=== PATIENT | female | born 1975 | race Caucasian/White ===

== ENCOUNTER 2017-09-07 07:02 | Inpatient (IN) | payer OTHER ==
[2017-09-07 07:17] LABS: ADD MAN DIFF? NO
[2017-09-07 07:19] LABS: WHITE BLOOD COUNT 7.1 10^3/ul (4.8-10.8)
[2017-09-07 07:19] LABS: BASOPHILS % 0.1 % (0.0-2.0); EOSINOPHILS % 0.3 % (0.0-7.0); HEMATOCRIT 36.3 % (37.0-47.0); HEMOGLOBIN 12.3 g/dl (12.0-16.0); LYMPHOCYTES # 2.4 10^3/ul (0.8-2.9); MEAN CORPUSCULAR HEMOGLOBIN 32.3 pg (29.0-33.0); MEAN CORPUSCULAR HGB CONC 33.9 g/dl (32.0-37.0); MEAN CORPUSCULAR VOLUME 95.3 fl (82.0-101.0); MEAN PLATELET VOLUME 9.6 fl (7.4-10.4); MONOCYTE # 0.6 10^3/ul (0.3-0.9); MONOCYTES % 8.7 % (0.0-11.0); NEUTROPHILS % 56.6 % (39.0-77.0); PLATELET COUNT 224 10^3/UL (140-415); RED BLOOD COUNT 3.81 10^6/ul (4.20-5.40); RED CELL DISTRIBUTION WIDTH 11.3 % (11.5-14.5)
[2017-09-07] MEDS ORDERED: SURGIFOAM POWDER 1 GM KIT (07:19)
[2017-09-07] MEDS ORDERED: THROMBIN 5000 UNIT VIAL (07:19)
[2017-09-07] MEDS ORDERED: GELATIN SIZE 100 SPONGE (07:19)
[2017-09-07] MEDS ORDERED: POLYMYXIN/BACITRACIN 1L IRRIG (07:19)
[2017-09-07] MEDS ORDERED: BUPIVACAINE 0.25% (MPF) 30 ML INJ (07:19)
[2017-09-07] MEDS ORDERED: HEPARIN 1000 UNITS/ML 10 ML INJ (07:19)
[2017-09-07] MEDS ORDERED: CA CHLORIDE 10% 10 ML SYRINGE (07:19)
[2017-09-07 07:21] LABS: PROTIME 14.4 Sec (11.9-14.9); PT RATIO 1.1
[2017-09-07 07:22] LABS: PARTIAL THROMBOPLASTIN TIME 28.4 Sec (25.0-35.0)
[2017-09-07 07:25] LABS: ALANINE AMINOTRANSFERASE 36 IU/L (13-69); ALBUMIN 3.7 g/dl (3.3-4.9); ALBUMIN/GLOBULIN RATIO 1.37; ALKALINE PHOSPHATASE 87 IU/L (42-121); ANION GAP 12 (8-16); ASPARTATE AMINO TRANSFERASE 32 IU/L (15-46); CARBON DIOXIDE 30 mmol/L (21-31); CHLORIDE 106 mmol/L (97-110); GLUCOSE 88 mg/dl (70-220); TOTAL PROTEIN 6.4 g/dl (6.1-8.1)
[2017-09-07 07:34] LABS: BLOOD UREA NITROGEN 11 mg/dl (7-20); CALCIUM 9.4 mg/dl (8.4-10.2); CREATININE 0.65 mg/dl (0.44-1.00); POTASSIUM 3.7 mmol/L (3.5-5.1); SODIUM 144 mmol/L (135-144)
[2017-09-07] MEDS ORDERED: CEFAZOLIN 1 GM INJ (07:47)
[2017-09-07] MEDS ORDERED: ROCURONIUM 50 MG INJ (07:47)
[2017-09-07] MEDS ORDERED: PROPOFOL 200 MG INJ (07:47)
[2017-09-07] MEDS ORDERED: LIDOCAINE 2% (SDV) 5 ML INJ (07:47)
[2017-09-07] MEDS ORDERED: MIDAZOLAM 1 MG/ML 2 ML INJ (07:47)
[2017-09-07] MEDS ORDERED: SUCCINYLCHOLINE CHLORIDE 100 MG/5 ML SYG IV (07:47)
[2017-09-07] MEDS ORDERED: FAMOTIDINE 20 MG INJ (08:09)
[2017-09-07] MEDS ORDERED: ONDANSETRON 4 MG INJ (08:09)
[2017-09-07] MEDS ORDERED: DEXAMETHASONE 4 MG/ML 1 ML INJ (08:09)
[2017-09-07] MEDS: POLYMYXIN/BACITRACIN 1L IRRIG IRR (08:19)
[2017-09-07] MEDS: SURGIFOAM POWDER 1 GM KIT MM (08:19)
[2017-09-07] MEDS: HEPARIN 1000 UNITS/ML 10 ML INJ IRR (08:19)
[2017-09-07] MEDS: THROMBIN 5000 UNIT VIAL TOP (08:19)
[2017-09-07] MEDS: BUPIVACAINE 0.5%/EPI (SDV) 30 ML INJ INJ (08:19)
[2017-09-07] MEDS ORDERED: METOCLOPRAMIDE 10 MG INJ IV (09:00)
[2017-09-07] MEDS ORDERED: HYDROmorphONE (0.2 MG/ML) 10ML SYG IV ×2 (09:00)
[2017-09-07] MEDS ORDERED: ONDANSETRON 4 MG INJ IV (09:00)
[2017-09-07] MEDS ORDERED: SUGAMMADEX SODIUM 200 MG/2 ML VIAL IV (09:31)
[2017-09-07] MEDS ORDERED: HYDROmorphONE 0.5 MG/0.5 ML SYG IV (10:00)
[2017-09-07] MEDS ORDERED: NALOXONE (0.4 MG/ML) INJ IV (10:00)
[2017-09-07] MEDS ORDERED: AL HYDROX/MG HYDROX/SIMETH 30 ML CUP PO (10:00)
[2017-09-07] MEDS ORDERED: CEPASTAT LOZENGE MT (10:00)
[2017-09-07] MEDS ORDERED: HYDROCODONE/APAP (10/325) TAB PO ×2 (10:00)
[2017-09-07] MEDS ORDERED: DIPHENHYDRAMINE 50 MG INJ IV (10:00)
[2017-09-07] MEDS ORDERED: BISACODYL 10 MG SUPP PR (10:00)
[2017-09-07] MEDS: HYDROmorphONE 0.2 MG/ML PCA IV (11:40)
[2017-09-07] MEDS: D5W-0.45 NACL + KCL 20 MEQ 1,000 ML IV ×3 (11:44→23:09)
[2017-09-07] MEDS: CEFAZOLIN 1 GM/50 ML (PMX) 50 ML IVPB ×2 (12:15→20:46)
[2017-09-07] MEDS: ONDANSETRON 4 MG INJ IV ×2 (15:17→22:06)
[2017-09-07] MEDS: DOCUSATE SODIUM 100 MG CAP PO (20:46)
[2017-09-08] MEDS: ONDANSETRON 4 MG INJ IV ×3 (04:03→22:15)
[2017-09-08] MEDS: CEFAZOLIN 1 GM/50 ML (PMX) 50 ML IVPB (04:03)
[2017-09-08] MEDS: SOD CHLORIDE 0.9% 1,000 ML IV (04:30)
[2017-09-08 05:34] LABS: ADD MAN DIFF? NO
[2017-09-08 05:39] LABS: BASOPHILS % 0.3 % (0.0-2.0); EOSINOPHILS % 0.4 % (0.0-7.0); HEMATOCRIT 31.1 % (37.0-47.0); HEMOGLOBIN 10.3 g/dl (12.0-16.0); LYMPHOCYTES # 2.1 10^3/ul (0.8-2.9); LYMPHOCYTES % 27.1 % (15.0-51.0); MEAN CORPUSCULAR HEMOGLOBIN 32.5 pg (29.0-33.0); MEAN CORPUSCULAR HGB CONC 33.1 g/dl (32.0-37.0); MEAN CORPUSCULAR VOLUME 98.1 fl (82.0-101.0); MEAN PLATELET VOLUME 9.8 fl (7.4-10.4); MONOCYTE # 0.7 10^3/ul (0.3-0.9); MONOCYTES % 9.3 % (0.0-11.0); NEUTROPHIL # 4.7 10^3/ul (1.6-7.5); NEUTROPHILS % 62.5 % (39.0-77.0); PLATELET COUNT 189 10^3/UL (140-415); RED BLOOD COUNT 3.17 10^6/ul (4.20-5.40); RED CELL DISTRIBUTION WIDTH 11.7 % (11.5-14.5)
[2017-09-08 05:39] LABS: WHITE BLOOD COUNT 7.6 10^3/ul (4.8-10.8)
[2017-09-08 05:59] LABS: ANION GAP 9 (8-16); BLOOD UREA NITROGEN 8 mg/dl (7-20); CALCIUM 8.7 mg/dl (8.4-10.2); CARBON DIOXIDE 29 mmol/L (21-31); CHLORIDE 105 mmol/L (97-110); CREATININE 0.63 mg/dl (0.44-1.00); GLUCOSE 99 mg/dl (70-220); MAGNESIUM 1.6 mg/dl (1.7-2.5); POTASSIUM 4.1 mmol/L (3.5-5.1); SODIUM 139 mmol/L (135-144)
[2017-09-08] MEDS: OXYCODONE/ACETAMINOPHEN (5/325) TAB PO (09:30)
[2017-09-08] MEDS: KETOROLAC 30 MG INJ IV (09:33)
[2017-09-08] MEDS: DOCUSATE SODIUM 100 MG CAP PO ×2 (09:33→20:41)
[2017-09-08] MEDS ORDERED: OXYCODONE/ACETAMINOPHEN (5/325) TAB PO ×2 (10:00)
[2017-09-08] MEDS: D5W-0.45 NACL + KCL 20 MEQ 1,000 ML IV (13:27)
[2017-09-08] MEDS: ACETAMINOPHEN 325 MG TAB PO (20:41)
[2017-09-08 21:17] LABS: ADD UMIC NO; UR ASCORBIC ACID NEGATIVE (NEGATIVE); UR BILIRUBIN (Dip) NEGATIVE (NEGATIVE); UR BLOOD (Dip) NEGATIVE (NEGATIVE); UR CLARITY CLEAR (CLEAR); UR COLOR YELLOW (YELLOW); UR GLUCOSE (Dip) NEGATIVE (NEGATIVE); UR KETONES (Dip) NEGATIVE (NEGATIVE); UR LEUKOCYTE ESTERASE (Dip) NEGATIVE Leu/ul (NEGATIVE); UR NITRITE (Dip) NEGATIVE (NEGATIVE); UR TOTAL PROTEIN (Dip) NEGATIVE (NEGATIVE); UR UROBILINOGEN (Dip) NEGATIVE (NEGATIVE)
[2017-09-08] MEDS: HYDROmorphONE 0.2 MG/ML PCA IV (22:11)
[2017-09-09] MEDS: D5W-0.45 NACL + KCL 20 MEQ 1,000 ML IV ×2 (01:59→11:40)
[2017-09-09] MEDS: ACETAMINOPHEN 325 MG TAB PO (01:59)
[2017-09-09] MEDS: CYCLOBENZAPRINE 10 MG TAB PO (05:05)
[2017-09-09] MEDS: SOD CHLORIDE 0.9% 500 ML IV (05:06)
[2017-09-09] MEDS: DOCUSATE SODIUM 100 MG CAP PO (08:45)
[2017-09-09] MEDS: MAGNESIUM SULFATE 3 GM in DEXTROSE 5% 100 ML IVPB (09:44)
[2017-09-09] MEDS: HYDROmorphONE 0.2 MG/ML PCA IV (17:26)
== END 2017-09-09 20:25 | disposition home or self-care (01) | DRG 520 ==
LOC: MS1 12:40 → SDS 09-08 14:02 → MS1 09-08 14:03 → SDS 07:02 → MS1 12:40
PROC: 0SB20ZZ Excision of Lumbar Vertebral Disc, Open Approach (ICD-10-PCS; principal; 2017-09-07 07:30)
PROC: 4A11X4G Monitoring of Peripheral Nervous Electrical Activity, Intraoperative, External Approach (ICD-10-PCS; 2017-09-07 07:30)
DX: M51.16 Intervertebral disc disorders with radiculopathy, lumbar region (principal); R50.9 Fever, unspecified; I95.81 Postprocedural hypotension; G89.18 Other acute postprocedural pain
CPT/HCPCS: 72020; 80048; 80053; 81003; 83735; 84703; 85025; 85610; 85730; 86999; 87040; 87086; 97110; 97116; 97161; 97530